=== PATIENT | female | born 1995 ===

== ENCOUNTER 2021-02-04 15:05 | Outpatient (CLI) | payer OTHER ==
[2021-02-04] MEDS ORDERED: LACTATED RINGERS 500 ML IV ONE (16:47)
[2021-02-04 17:09] LABS: Hematocrit 36.9 % (30.3-42.9); Hemoglobin 12.7 gm/dl (10.1-14.3); Mean Corpuscular HGB Conc 34 % (30-34); Mean Corpuscular Volume 83 fl (79-97); Platelet Count 239 K/mm3 (140-440); Red Blood Count 4.43 M/mm3 (3.65-5.03); Red Cell Distribution Width 13.7 % (13.2-15.2)
[2021-02-04 17:31] LABS: Alanine Aminotransferase 9 units/L (7-56); Uric Acid 4.1 mg/dL (3.5-7.6)
[2021-02-04 17:40] LABS: Bacteria,Urine 1+ /HPF (Negative); Bilirubin,Urine NEG (Negative); Blood,Urine MOD (Negative); Color,Urine Yellow (Yellow); Mucus,Urine 3+ /HPF; Urobilinogen,Urine < 2.0 mg/dL (<2.0)
[2021-02-04 18:44] VITALS: BP 118/78
== END 2021-02-04 18:53 | disposition home or self-care (01) ==
LOC: TRG 15:05 → APU 15:07 → TRG 18:53
PROVIDERS: ATTEND Obstetrics & Gynecology
DX: O26.893 Other specified pregnancy related conditions, third trimester (principal); R51.9 Headache, unspecified; R60.9 Edema, unspecified; O47.03 False labor before 37 completed weeks of gestation, third trimester; O13.3 Gestational [pregnancy-induced] hypertension without significant proteinuria, third trimester; O99.513 Diseases of the respiratory system complicating pregnancy, third trimester; J45.909 Unspecified asthma, uncomplicated; Z3A.35 35 weeks gestation of pregnancy
CPT/HCPCS: 36415; 59025; 81001; 82565; 83615; 84450; 84460; 84550; 85027; 96360

== ENCOUNTER 2021-02-16 02:26 | Inpatient (IN) | payer OTHER ==
[2021-02-16] MEDS ORDERED: MINERAL OIL 30 ML ORAL LIQD PO PRN (03:18)
[2021-02-16] MEDS ORDERED: TERBUTALINE 1 MG/1 ML INJ SUB-Q PRN (03:18)
[2021-02-16] MEDS ORDERED: AMPICILLIN/NS 2 GM/100 ML 2 GM/100 ML BAG IV ONE (03:18)
[2021-02-16] MEDS ORDERED: LIDOCAINE (2%) 20 MG/1 ML VIAL 20 ML MDV INFILTRATI ONE ×2 (03:18→07:45)
[2021-02-16] MEDS ORDERED: ePHEDrine SULFATE 50 MG/1 ML INJ IV PRN (03:18)
[2021-02-16] MEDS ORDERED: fentaNYL 100 MCG/2 ML INJ IV PRN (03:18)
[2021-02-16] MEDS ORDERED: LACTATED RINGERS 1,000 ML IV SCH (03:30)
--- NOTE | 2021-02-16 03:55 | History and Physical Report ---
History of Present Illness Date of examination: 02/16/21 Chief complaint: leakage of fluid History of present illness: 25 yo at 37w2d by stated HERON 03/07/2021 with PNC at [facility] c/b hx asthma, ?CHTN (no meds), hx LGA infant 9lb7oz, obesity presenting for spontaneous rupture of membranes at 0130 with intermittent contractions since that time. Denies vaginal bleeding. +FM. Denies PIH symptoms. No records at time of admission. Past History Past Medical History: asthma Past Surgical History: no surgical history Family/Genetic History: none Social history: no significant social history - Obstetrical History Expected Date of Delivery: 03/07/21 Actual Gestation: 37 Week(s) 2 Day(s) : 2 Para: 1 Number of Living Children: 1 Medications and Allergies Allergies Allergy/AdvReac Type Severity Reaction Status Date / Time No Known Allergies Allergy Unverified 02/04/21 15:47 Active Meds: Active Medications Ephedrine Sulfate (Ephedrine Sulfate 50 Mg/1 Ml Inj) 10 mg IV Q2M PRN PRN Reason: Hypotension Fentanyl (Fentanyl 100 Mcg/2 Ml Inj) 100 mcg IV Q2H PRN PRN Reason: Pain,Severe (7-10) LABOR PAIN Lactated Ringer's (Lactated Ringers) 1,000 mls @ 125 mls/hr IV DIRECT VAN Oxytocin/Sodium Chloride (Pitocin/Ns 30 Unit/500ml) 30 units in 500 mls @ 40 mls/hr IV TITR VAN; Protocol Ampicillin Sodium (Ampicillin/Ns 2 Gm/100 Ml) 2 gm in 100 mls @ 100 mls/hr IV ONCE ONE; Protocol Stop: 02/16/21 04:17 Mineral Oil (Mineral Oil 30 Ml Oral Liqd) 30 ml PO QHS PRN PRN Reason: Constipation Terbutaline Sulfate (Terbutaline 1 Mg/1 Ml Inj) 0.25 mg SUB-Q ONCE PRN PRN Reason: Hyperstimulation/Hypertonicity Review of Systems All systems: negative (expect HPI) - Vital Signs Vital signs: Vital Signs Pulse Ox 98 02/16/21 02:54 Temp Pulse Resp BP Pulse Ox 98.6 F 82 18 132/76 97 02/16/21 02:56 02/16/21 03:48 02/16/21 02:56 02/16/21 02:56 02/16/21 03:48 - Physical Exam Abdomen: Positive: normal appearance, normal bowel sounds, other (gravid) Uterus: Positive: enlarged - Obstetrical FHR: category 1 Uterine Contraction Monitor Mode: External Cervical Dilatation: 2 Cervical Effacement Percentage: 50 station: -3 Uterine Contraction Pattern: Irregular Results All other labs normal. Assessment and Plan - Patient Problems (1) Rupture of membranes with clear amniotic fluid Current Visit: Yes Status: Acute Plan to address problem: s/p SROM at 0130 02/16/21 --IOL pending obtaining records --Pain management as indicated --Amp given GBS unknown --Anticipate
[2021-02-16] MEDS ORDERED: OXYTOCIN DRIP 30 UNITS/500 ML BAG IV SCH (04:00)
[2021-02-16 04:15] LABS: Hematocrit 39.2 % (30.3-42.9); Hemoglobin 13.4 gm/dl (10.1-14.3); Mean Corpuscular HGB Conc 34 % (30-34); Mean Corpuscular Volume 82 fl (79-97); Platelet Count 227 K/mm3 (140-440); Red Blood Count 4.77 M/mm3 (3.65-5.03); Red Cell Distribution Width 14.1 % (13.2-15.2)
[2021-02-16] MEDS ORDERED: METHYLERGONOVINE MALEATE 0.2 MG/ML VIAL IM ONE ×2 (07:30→07:43)
[2021-02-16] MEDS ORDERED: LANOLIN/ZINC/DIMETHICONE (LANSINOH) 7 GM TP PRN (08:00)
[2021-02-16] MEDS ORDERED: PROMETHAZINE 25 MG TAB PO PRN (08:00)
[2021-02-16] MEDS ORDERED: diphenhydrAMINE 25 MG CAP PO PRN (08:00)
[2021-02-16] MEDS ORDERED: ACETAMINOPHEN 325 MG TAB PO PRN (08:00)
[2021-02-16] MEDS ORDERED: PROMETHAZINE 25 MG RECT SUPP PR PRN (08:00)
[2021-02-16] MEDS ORDERED: WITCH HAZEL/ GLYCERIN PAD TP PRN (08:00)
[2021-02-16] MEDS ORDERED: ONDANSETRON 4 MG/2 ML INJ IV PRN (08:00)
--- NOTE | 2021-02-16 08:04 | Procedure Note ---
OB Delivery Note - Delivery Date of Delivery: 02/16/21 Surgeon: MIKA KAY JR Estimated blood loss: 500cc - Vaginal Delivery presentation: vertex Delivery position: OA Intrapartum events: none, uterine atony (s/p methergine x 1) Delivery induction: none Delivery augmentation: rupture of membranes Delivery monitor: none Route of delivery: Delivery placenta: spontaneous Delivery laceration: 2nd degree, vaginal side wall Delivery repair: vicryl Anesthesia: local Delivery comments: Status post spontaneous vaginal delivery without induction or augmentation agents at 0736. SROM at 0130. Apgars 8/9. Weight 3725 g. Height 20 inches. Spontaneous delivery of placenta with moderate uterine atony improved with Methergine x1. Second-degree perineal laceration repaired with 2-0 Vicryl and noted to have bilateral sidewall lacerations open repaired. - Infant A at 1 minute: 8 at 5 minutes: 9 Gender: Male
[2021-02-16] MEDS: oxyCODONE /ACETAMINOPHEN 5-325MG TAB PO PRN (09:06)
[2021-02-16 20:50] LABS: Hematocrit 32.3 % (30.3-42.9); Hemoglobin 10.9 gm/dl (10.1-14.3)
[2021-02-16] MEDS ORDERED: MAGNESIUM HYDROXIDE (MOM) ORAL LIQD UDC PO PRN (22:00)
[2021-02-17] MEDS: IBUPROFEN 600 MG TAB PO SCH ×3 (00:14→13:43)
[2021-02-17] MEDS: oxyCODONE /ACETAMINOPHEN 5-325MG TAB PO PRN ×2 (03:52→17:14)
--- NOTE | 2021-02-17 09:45 | Progress Note ---
Assessment and Plan PPD #1 A: S/P P: D/C home today if stable per pt request Subjective - Subjective Date of service: 02/17/21 Principal diagnosis: s/p Patient reports: appetite normal, voiding normally, pain well controlled, ambul ating normally : doing well, bottle feeding Objective - Vital Signs Latest vital signs: Vital Signs Temp Pulse Resp BP BP Pulse Ox 02/17/21 08:17 98.4 F 81 18 139/69 99 02/17/21 03:52 16 02/17/21 01:20 98.2 F 87 20 127/58 97 02/17/21 00:14 18 02/16/21 17:14 98.3 F 96 H 18 141/66 96 02/16/21 12:33 98.0 F 77 18 136/75 99 02/16/21 10:00 98.1 F 77 18 118/64 98 Intake and Output 02/16/21 02/17/21 02/17/21 22:59 06:59 14:59 Intake Total 240 Balance 240 Intake: Oral 240 Other: Total, Intake Amount 240 # Voids Void 1 1 - Exam Breasts: Present: normal Abdomen: Present: normal appearance, soft, normal bowel sounds Vulva: both: normal Uterus: Present: normal, firm, fundal height below umbilicus Extremities: Present: normal Incision: Present: normal, intact, other (2nd degree perineal , karin side wall lac)
--- NOTE | 2021-02-17 09:50 | Discharge Summary ---
Providers - Providers Date of Admission: 02/16/21 03:18 Date of discharge: 02/17/21 Attending physician: MIKA KAY JR, MD Primary care physician: MIKA KAY JR, MD Hospitalization Reason for admission: active labor Delivery: Episiotomy: none Laceration: vaginal side wall, 2nd degree Incision: normal, intact Other procedures: none complications: none Discharge diagnosis: IUP at term delivered [place] baby: male Hospital course: Pt was admitted in labor and had a w/o pp complications. See H&P, delivery summary, and pp notes. Condition at discharge: Stable Disposition: DC-01 TO HOME OR SELFCARE Plan - Discharge Medications Prescriptions: Ibuprofen [Motrin 600 MG tab] 600 mg PO Q6HR #30 tablet - Provider Discharge Summary Activity: routine, no sex for 6 weeks, no heavy lifting 4 weeks, no strenuous exercise Diet: routine Instructions: routine Additional instructions: [] Smoking cessation referral if applicable(refer to patient education folder for contact #) [] Refer to [facility] Booklet Call your doctor immediately for: * Fever > 100.5 * Heavy vaginal bleeding ( >1 pad per hour) * Severe persistent headache * Shortness of breath * Reddened, hot, painful area to leg or breast * Drainage or odor from incision. * Keep incision clean and dry at all times and follow doctor's instructions regarding bathing/showering - Follow up plan Follow up: MIKA KAY JR, MD [Primary Care Provider] - 6 Weeks
[2021-02-18] MEDS: IBUPROFEN 600 MG TAB PO SCH ×3 (01:43→12:39)
[2021-02-18] MEDS: oxyCODONE /ACETAMINOPHEN 5-325MG TAB PO PRN (01:43)
[2021-02-18 14:18] VITALS: BP 139/68
== END 2021-02-18 14:00 | disposition home or self-care (01) | DRG 775 ==
LOC: TRG 02:26 → APU 02:29 → TRG 03:18 → LD 03:18 → OB 10:06
PROVIDERS: ADMIT Obstetrics & Gynecology; ATTEND Obstetrics & Gynecology
PROC: 10E0XZZ Delivery of Products of Conception, External Approach (ICD-10-PCS; principal; 2021-02-16)
PROC: 0KQM0ZZ Repair Perineum Muscle, Open Approach (ICD-10-PCS; 2021-02-16)
DX: O62.2 Other uterine inertia (principal); Z3A.37 37 weeks gestation of pregnancy; Z37.0 Single live birth; O99.52 Diseases of the respiratory system complicating childbirth; J45.909 Unspecified asthma, uncomplicated; Z20.822 Contact with and (suspected) exposure to COVID-19; O70.1 Second degree perineal laceration during delivery
CPT/HCPCS: 36415; 59025; 85014; 85018; 85027; 86592; 86850; 86900; 86901; G0378; J0290; J2210; J2590; J3010; J7120; U0003